=== PATIENT | female | born 1975 | race Caucasian/White ===

== ENCOUNTER → 2024-01-27 15:26 | Outpatient (REF) | payer BC, SELFPAY | LOC: WDC 15:26 | PROVIDERS: ATTENDING PHYSICIAN Family Medicine | DX: Z12.31 Encounter for screening mammogram for malignant neoplasm of breast (principal) | CPT/HCPCS: 77063; 77067 ==

== ENCOUNTER → 2024-07-16 11:17 | Outpatient (REF) | payer BC, SELFPAY | LOC: RAD 11:17 | PROVIDERS: ATTENDING PHYSICIAN Family Medicine | DX: Z98.84 Bariatric surgery status (principal); Z13.820 Encounter for screening for osteoporosis | CPT/HCPCS: 77080 ==

== ENCOUNTER → 2024-09-22 10:05 | Outpatient (REF) | payer BC, SELFPAY | LOC: RAD 10:05 | PROVIDERS: ATTENDING PHYSICIAN Physician Assistant; FAMILY PHYSICIAN Family Medicine | DX: R10.84 Generalized abdominal pain (principal) | CPT/HCPCS: 74177; Q9967 ==